=== PATIENT | female | born 1985 | race Caucasian/White ===

== ENCOUNTER 2018-01-25 09:48 | Emergency (ER) | payer OTHER ==
[~2018-01-25] VITALS: Ht 167.6 cm; Wt 68.5 kg
[~2018-01-25 09:48] MED LIST: AZO95 MG PO; KEFLEX500 MG PO; METOCLOPRAMIDE H5 MG PO; NORCO 5-325 TA1 EACH PO; OXYCODON-ACETA1 EAC2 PO; PERCOCET 5-3251 EACH PO
[2018-01-27] MEDS ORDERED: AUGMENTIN 875-1 EACH PO (23:01)
== END 2018-01-25 10:20 | disposition home or self-care (01) ==
LOC: ED 09:48
DX: S61.451A Open bite of right hand, initial encounter (principal); W54.0XXA Bitten by dog, initial encounter

== ENCOUNTER 2019-01-31 08:00 | Day surgery (SDC) | payer OTHER ==
[~2019-01-31] VITALS: Ht 165.1 cm; Wt 74.8 kg
[~2019-01-31 08:00] MED LIST changes: +AUGMENTIN 875-1 EACH PO; +BACTRIM DS TAB1 EACH PO; +BUSPIRONE HCL5 MG PO; +PYRIDIUM200 MG PO; +VIBERZI100 MG PO
--- NOTE | 2019-01-31 09:42 | NUR ---
[facility]42 [facility] ARRIVED IN PACA SLEEPY WITH NO C/O'S. ABD SOFT. 0940 REPOSITIONED SELF TO BACK.
--- NOTE | 2019-02-01 06:47 | OR ---
[facility] [address], [place] [address] Signed DATE OF OPERATION: 01/31/2019 SURGEON: Phuong Lynne MD PREOPERATIVE DIAGNOSES: 1. Irritable bowel syndrome with diarrhea and constipation. 2. Internal hemorrhoids. 3. Chronic left lower quadrant abdominal pain. 4. Colonoscopy in 2010 with minimal internal hemorrhoids. POSTOPERATIVE DIAGNOSIS: Minimal internal hemorrhoids. PROCEDURE PERFORMED: Colonoscopy with cold biopsies of the terminal ileum, right and transverse colon, left colon, sigmoid colon and rectum. ESTIMATED BLOOD LOSS: None. INDICATIONS: Summer is a 33-year-old female, asked to see me for a followup colonoscopy with biopsies. She has had trouble with what is probably irritable bowel syndrome. She has had diarrhea and constipation. Colonoscopy in 2010 was done for left lower quadrant abdominal pain, which she continues to have issues with. She has had surgery on the left ovary and then she had the left ovary removed along with the uterus. The right ovary remains in place. She is known to have some very small internal hemorrhoid tissue. We have adjusted some of her medications and she continues to have the diarrhea. Consequently, she was asked to see me for biopsies. I had met with Summer in the office and I gave her a pamphlet on colonoscopy. We reviewed that together along with the risks including, but not limited to gas, bloating, crampy abdominal pain, bleeding, perforation, requiring surgery, and missed diagnosis. In addition, she has to take Percocet 7.5 mg three times a day for her chronic pain issues. Consequently, our simple Versed and fentanyl would not be sufficient to put her to sleep. We asked an anesthesia provider to help us with increased monitoring and sedation with propofol. That proved to be a munroe decision as she did require a fair amount of propofol. She had expressed understanding and wished to proceed. DESCRIPTION OF PROCEDURE: Summer was taken into our endoscopy suite and placed in the left lateral decubitus Electronically Signed By: PHUONG LYNNE MD 02/01/19 0647 PATIENT NAME: SUMMER OSBORN OPERATIVE REPORT DATE OF : 87 REPORT #: [id number] PHYSICIAN: PHUONG LYNNE MD PCP: LANCE IGLESIAS MD REPORT IS CONFIDENTIAL AND NOT TO BE RELEASED WITHOUT AUTHORIZATION [facility] [address], [place] [address] Signed position. She was given IV sedation with propofol per our nurse furniture shampooer. A digital rectal exam was performed and this was unremarkable. The adult colonoscope was introduced and advanced all around into the cecum under direct visualization of camera without difficulty. Her prep was quite excellent. We turned the camera, went into the terminal ilium about 5-8 cm. It would not pass any further. It looked healthy to us. We took out two biopsies from the terminal ilium for pathologic review. The scope had been withdrawn back into the colon. The scope was slowly withdrawn. We took biopsies throughout the colon for pathologic review. We saw no evidence of any inflammatory changes and no diverticulosis or polyps. The rectum was unremarkable. Upon retroflexion of scope, once again she has had some very small internal hemorrhoid tissue. The gas was then suctioned out. The colonoscope removed. Summer tolerated the procedure quite well. RECOMMENDATIONS: I will see Summer back in my office in 7 to 14 days to review her biopsy results. Phuong Lynne MD ALB/MODL /[id number] cc: MD Lance Murray MD Copies: PHUONG LYNNE MD, CHRISTOPHER MD ~ Electronically Signed By: PHUONG LYNNE MD 02/01/19 0647 PATIENT NAME: IRENASUMMER MAYANK OPERATIVE REPORT DATE OF : 87 REPORT #: [id number] PHYSICIAN: PHUONG LYNNE MD PCP: LANCE IGLESIAS MD REPORT IS CONFIDENTIAL AND NOT TO BE RELEASED WITHOUT AUTHORIZATION
== END 2019-01-31 10:10 | disposition home or self-care (01) ==
LOC: DS 08:00 → OPS 08:00 → DS 08:45 → OPS 08:45
PROVIDERS: Colon & Rectal Surgery
PROC: 0DBM8ZX Excision of Descending Colon, Via Natural or Artificial Opening Endoscopic, Diagnostic (ICD-10-PCS; 2019-01-31)
PROC: 0DBP8ZX Excision of Rectum, Via Natural or Artificial Opening Endoscopic, Diagnostic (ICD-10-PCS; 2019-01-31)
PROC: 0DBN8ZX Excision of Sigmoid Colon, Via Natural or Artificial Opening Endoscopic, Diagnostic (ICD-10-PCS; 2019-01-31)
PROC: 0DBE8ZX Excision of Large Intestine, Via Natural or Artificial Opening Endoscopic, Diagnostic (ICD-10-PCS; 2019-01-31)
PROC: 0DBB8ZX Excision of Ileum, Via Natural or Artificial Opening Endoscopic, Diagnostic (ICD-10-PCS; principal; 2019-01-31 08:45)
DX: K64.8 Other hemorrhoids (principal); K58.2 Mixed irritable bowel syndrome; F17.210 Nicotine dependence, cigarettes, uncomplicated; F43.10 Post-traumatic stress disorder, unspecified; F41.9 Anxiety disorder, unspecified; F31.9 Bipolar disorder, unspecified; Z98.890 Other specified postprocedural states; Z88.5 Allergy status to narcotic agent; Z91.040 Latex allergy status; Z79.899 Other long term (current) drug therapy
CPT/HCPCS: J2405; J2704

== ENCOUNTER 2019-04-29 20:52 | Emergency (ER) | payer OTHER ==
[~2019-04-29] VITALS: Ht 165.1 cm; Wt 70.8 kg
--- OUTSIDE RECORDS SUMMARY | 2019-04-29 22:26 | XMS ---
PreManage Notification: AQUILINO OSBORN Security Household Manager Events No recent Security Events currently on file CRITERIA MET - DEENA CARE PROVIDERS [facility] KATHLEEN Varma PHONE: [phone] Parker Amador Current PHONE: Unknown Betzy has no Care Guidelines for this patient. EJean VISIT COUNT (12 MO.) 2 TO [facility] TOTAL 2 NOTE: Visits indicate total known visits. ED/UCC VISIT TRACKING (12 MO.) 04/29/2019 22:22 TO [facility] TYPE: Emergency COMPLAINT: - HAND INJURY, CUT 01/16/2019 07:21 [facility] TYPE: Emergency COMPLAINT: - BLOOD IN URINE/BACK PAIN DIAGNOSES: - Latex allergy status - Other ad terminal makeup operator (current) drug therapy - Acquired absence of both cervix and uterus - Hematuria, unspecified - Personal history of urinary (tract) infections - Allergy status to narcotic agent status - Nicotine dependence, unspecified, uncomplicated - Acquired absence of other specified parts of digestive tract INPATIENT VISIT TRACKING (12 MO.) No inpatient visits to display in this time frame [email or web address]
== END 2019-04-29 22:32 | disposition home or self-care (01) ==
LOC: ED 20:52
DX: S61.412A Laceration without foreign body of left hand, initial encounter (principal); F17.200 Nicotine dependence, unspecified, uncomplicated; Z88.5 Allergy status to narcotic agent; Z91.040 Latex allergy status; W26.0XXA Contact with knife, initial encounter
CPT/HCPCS: 73130; 99283

== ENCOUNTER 2021-09-05 17:12 | Emergency (ER) | payer OTHER ==
[~2021-09-05] VITALS: Ht 165.1 cm; Wt 70.8 kg
[2021-09-05] MEDS ORDERED: PREDNISONE20 MG PO (18:20)
[2021-09-08] MEDS ORDERED: PROMETHAZINE HC25 M1 PO (23:29)
[2021-09-09] MEDS ORDERED: HYDROXYZINE HCL25 MG PO (00:22)
== END 2021-09-05 19:44 | disposition home or self-care (01) ==
LOC: ED 17:12
DX: T78.40XA Allergy, unspecified, initial encounter (principal); F17.200 Nicotine dependence, unspecified, uncomplicated; Z88.5 Allergy status to narcotic agent; Z91.040 Latex allergy status
CPT/HCPCS: 96374; 96375; 99283-25; J0171; J1200; J2930; J7030

== ENCOUNTER 2021-12-13 18:58 | Emergency (ER) | payer OTHER ==
[~2021-12-13] VITALS: Ht 165.1 cm; Wt 82.8 kg
[~2021-12-13 18:58] MED LIST changes: +HYDROXYZINE HCL25 MG PO; +PREDNISONE20 MG PO; +PROMETHAZINE HC25 M1 PO
[2021-12-13] MEDS ORDERED: CIPROFLOXACIN500 MG PO (19:27)
[2021-12-13] MEDS ORDERED: CEFDINIR300 MG PO (20:36)
[2021-12-13] MEDS ORDERED: HYDROCODON-ACE1 EA10 PO (20:36)
== END 2021-12-13 21:36 | disposition home or self-care (01) ==
LOC: ED 18:58
DX: N12 Tubulo-interstitial nephritis, not specified as acute or chronic (principal); F17.200 Nicotine dependence, unspecified, uncomplicated; Z88.5 Allergy status to narcotic agent; Z91.040 Latex allergy status; Z91.018 Allergy to other foods; Z79.899 Other long term (current) drug therapy
CPT/HCPCS: 36415; 74176; 80048; 81001; 85025; 96365; 96375; 99284-25; J0696; J1885; J2270; J2405; J7030

== ENCOUNTER 2023-10-07 16:34 | Emergency (ER) | payer OTHER ==
[~2023-10-07] VITALS: Ht 165.1 cm; Wt 80.1 kg
[~2023-10-07 16:34] MED LIST changes: +CEFDINIR300 MG PO; +CIPROFLOXACIN500 MG PO; +HYDROCODON-ACE1 EA10 PO
[2023-10-07] MEDS ORDERED: EPINEPHRIN0.3 MG/0.3 IM (18:15)
[2023-10-07] MEDS ORDERED: PROMETHAZINE HC25 M1 PO (18:15)
[2023-10-07 18:45] VITALS: BP 116/75
== END 2023-10-07 18:45 | disposition home or self-care (01) ==
LOC: ED 16:34
DX: S10.0XXA Contusion of throat, initial encounter (principal); S20.224A Contusion of middle back wall of thorax, initial encounter; Y04.0XXA Assault by unarmed brawl or fight, initial encounter; F17.200 Nicotine dependence, unspecified, uncomplicated; Z79.899 Other long term (current) drug therapy
CPT/HCPCS: 99284